=== PATIENT | female | born 1955 | race Two or more races ===

== ENCOUNTER → 2024-08-16 | Outpatient (CLI) | payer MEDICARE, SELFPAY ==
--- NOTE | 2024-08-16 15:23 | XR_ITS ---
Examination: Hand, right 3 views Technique: Hand AP, oblique, lateral 3 views Date and time of exam: August 16, 2024 1629 hours INDICATIONS: Right hand pain beginning 6 months ago FINDINGS: Significant osteopenia Significant narrowing arthritic change navicular trapezium, first carpometacarpal joint, first metacarpophalangeal joint and interphalangeal joint first digit Mild to moderate osteoarthritis distal interphalangeal joints second through fifth digits No cortical bone destruction No opaque foreign bodies No fractures IMPRESSION: Osteoarthritis as above
== END | disposition home or self-care (01) ==
LOC: CDIM 15:09
PROVIDERS: PCP Nurse Practitioner Gerontology; Referring Provider Nurse Practitioner Gerontology; Visit Provider Nurse Practitioner Gerontology
DX: M19.041 Primary osteoarthritis, right hand (principal)
CPT/HCPCS: 73130